=== PATIENT | male | born 1990 | race Caucasian/White ===

== ENCOUNTER → 2017-01-14 | Outpatient (CLI) | payer OTHER ==
[~2017-01-14] MED LIST: KEFLEX500 MG PO; PEPCID20 MG PO; TOPROL XL25 MG PO; VICODIN 5-3001 EACH PO
[2017-01-14 17:19] LABS: ALBUMIN 4.5 gm/dL (3.5-5.0); ANION GAP 13.9 (10.0-19.0); BLOOD UREA NITROGEN 31 mg/dL (6-24); CALCIUM 9.3 mg/dL (8.5-10.5); CHLORIDE 106 mMol/L (96-110); CO2 23 mMol/L (22-32); ESTIMATED GFR (MDRD EQUATION) > 60; MAGNESIUM 2.3 mg/dL (1.8-2.6); PHOSPHORUS 3.7 mg/dL (2.5-4.9); POTASSIUM 3.9 mMol/L (3.7-5.1); SODIUM 139 mMol/L (135-145)
== END | disposition disaster alternative care site (69) ==
LOC: LCNC 16:55
PROVIDERS: Internal Medicine Interventional Cardiology
DX: R00.2 Palpitations (principal)